=== PATIENT | female | born 1985 | race Hispanic/Latino ===

== ENCOUNTER 2017-03-13 10:49 | Inpatient (IN) | payer OTHER ==
[2017-03-13] MEDS ORDERED: LACTATED RINGERS 1,000 ML ONE (11:20)
[2017-03-13] MEDS ORDERED: LACTATED RINGERS 1,000 ML IV ONE (11:24)
[2017-03-13] MEDS ORDERED: LACTATED RINGERS 1,000 ML IV SCH ×2 (13:00→17:00)
[2017-03-13] MEDS ORDERED: SUBLIMAZE IV ONE (13:30)
[2017-03-13] MEDS ORDERED: PEPCID IV ONE (16:15)
[2017-03-13] MEDS ORDERED: BICITRA PO ONE (16:15)
[2017-03-13] MEDS ORDERED: REGLAN IV ONE (16:15)
[2017-03-13 16:49] LABS: Basophils % (Auto) 0.2 % (0.0-1.8); Eosinophils % (Auto) 1.9 % (0.0-4.3); Hematocrit 38.3 % (30.3-42.9); Mean Corpuscular HGB Conc 34 % (30-34); Mean Corpuscular Hemoglobin 32 pg (28-32); Mean Corpuscular Volume 95 fl (79-97); Platelet Count 218 K/mm3 (140-440); Red Blood Count 4.03 M/mm3 (3.65-5.03); Red Cell Distribution Width 13.8 % (13.2-15.2); White Blood Count 9.9 K/mm3 (4.5-11.0)
[2017-03-13] MEDS ORDERED: ANCEF/STERILE WATER 2 GM/20 ML 2 GM/20 ML SYRINGE IV NR (17:00)
[2017-03-13] MEDS ORDERED: PITOCin/NS 20 UNIT/1000ML DRIP 20 UNITS/1,000 ML BAG IV SCH ×2 (17:00→19:00)
--- NOTE | 2017-03-13 17:10 | Anesthesia Consultation ---
Anesthesia Consult and Med Hx Date of service: 03/13/17 - Airway Anesthetic Teeth Evaluation: Good ROM Head & Neck: Adequate Mental/Hyoid Distance: Adequate Mallampati Class: Class II Intubation Access Assessment: Probably Good - Pre-Operative Health Status ASA Pre-Surgery Classification: ASA2 Proposed Anesthetic Plan: Epidural, Spinal - Pulmonary Hx Asthma: No COPD: No Hx Pneumonia: No - Cardiovascular System Hx Hypertension: No - Central Nervous System Hx Seizures: No Hx Psychiatric Problems: No - Endocrine Hx Renal Disease: No Hx End Stage Renal Disease: No Hx Hypothyroidism: No Hx Hyperthyroidism: No - Hematic Hx Anemia: No Hx Sickle Cell Disease: No
[2017-03-13] MEDS ORDERED: PHENERGAN PR PRN (17:11)
[2017-03-13] MEDS ORDERED: ZOFRAN IV PRN (17:11)
[2017-03-13] MEDS ORDERED: MORPHINE IV PRN ×3 (17:11→18:39)
[2017-03-13] MEDS ORDERED: TORADOL IV PRN (17:11)
[2017-03-13] MEDS ORDERED: NARCAN 0.4 MG/1 ML IV PRN ×2 (17:11→18:58)
--- NOTE | 2017-03-13 17:11 | Anesthesia Day of Surgery ---
Anesthesia Day of Surgery - Day of Surgery Patient Examined: Yes Patient H&P Reviewed: Yes Patient is NPO: Yes
--- NOTE | 2017-03-13 17:16 | History and Physical Report ---
History of Present Illness Date of examination: 03/13/17 Date of admission: 03/13/17 16:22 Chief complaint: Repeat C Section with BTL History of present illness: Pt is a 31 yo WF EDC 03/30/17; EGA 37 4/7 weeks presents for the office complaining of RUC's q 2-3 mins and dilated 3cm. Pt had a previous C Section and desires a Repeat C Section with BTL. She received care at [facility] since 14 weeks and course has been unremarkable. records are available and GBS is Negative. Past History Past Medical History: no pertinent history Past Surgical History: section Social history: no significant social history, - Obstetrical History Expected Date of Delivery: 03/30/17 Actual Gestation: 37 Week(s) 4 Day(s) : 2 Medications and Allergies Allergies Allergy/AdvReac Type Severity Reaction Status Date / Time Sulfa (Sulfonamide Allergy Rash Verified 03/13/17 11:17 Antibiotics) Home Medications Medication Instructions Recorded Confirmed Last Taken Type Cetirizine HCl [Zyrtec] 10 mg PO DAILY 03/13/17 03/13/17 03/12/17 21:00 History 1 Ferrous Sulfate [Feosol 325 MG tab] 325 mg PO BID #60 tablet 03/13/17 Unknown Rx HYDROcodone/APAP 5-325 [[place] 1 each PO Q6HR PRN #30 tablet 03/13/17 Unknown Rx 5/325] Ibuprofen [Motrin] 800 mg PO Q8HR PRN #30 tablet 03/13/17 Unknown Rx Vit Calc,Iron,Folic 1 each PO DAILY #30 tablet 03/13/17 Unknown Rx [ Vitamins] Vit-Fe Fumar-FA [ 1 tab PO QDAY 03/13/17 03/13/17 03/12/17 21: 00 History Vitamin] 1 Active Meds: Active Medications Lactated Ringer's (Lactated Ringers) 1,000 mls @ 125 mls/hr IV DIRECT STEPHANIA Last Admin: 03/13/17 13:00 Dose: 125 mls/hr Cefazolin Sodium (Ancef/Sterile Water 2 Gm/20 Ml) 2 gm in 20 mls @ 80 mls/hr IV PREOP NR PRN Reason: Protocol Stop: 03/13/17 23:59 Lactated Ringer's (Lactated Ringers) 1,000 mls @ 2,250 mls/hr IV PREOP STEPHANIA Stop: 03/14/17 17:27 Last Admin: 03/13/17 16:45 Dose: 2,250 mls/hr Oxytocin/Sodium Chloride (Pitocin/Ns 20 Unit/1000ml Drip) 20 units in 1,000 mls @ 0 mls/hr IV TITR STEPHANIA PRN Reason: As Directed Review of Systems All systems: negative - Vital Signs Vital signs: Vital Signs Pulse BP 101 H 118/73 03/13/17 11:15 03/13/17 11:15 Temp Pulse Resp BP Pulse Ox 85 20 132/62 96 03/13/17 16:05 03/13/17 11:25 03/13/17 15:51 03/13/17 16:05 - Physical Exam Breasts: Positive: deferred Cardiovascular: Regular rate Lungs: Positive: Clear to auscultation Abdomen: Positive: normal appearance, soft Vagina: Positive: normal moisture Uterus: Positive: enlarged Extremities: Positive: normal - Obstetrical FHR: category 1 Uterine Contraction Monitor Mode: External Cervical Dilatation: 3 Cervical Effacement Percentage: 60 station: -2 Uterine Contraction Pattern: Regular Uterine Tone Measurement Phase: Contraction Uterine Contraction Intensity: Moderate Results Result Diagrams: 03/13/17 11:30 Abnormal lab results 03/13/17 Range/Units 11:30 [place] % (Auto) 7.9 H (0.0-7.3) % Seg Neutrophils % 71.6 H (40.0-70.0) % All other labs normal. Assessment and Plan - Patient Problems (1) 37 weeks gestation of Onset Date: 03/13/17 Current Visit: Yes Status: Acute Plan to address problem: A: IUP @ 37 4/7 weeks in labor Previous C Section Desires permanent sterilization P: Admit to L&D for repeat C Section with BTL (2) Previous delivery affecting Onset Date: 03/13/17 Current Visit: Yes Status: Acute (3) Contraception management Onset Date: 03/13/17 Current Visit: Yes Status: Acute Qualifiers: Contraceptive encounter type: sterilization Qualified Code(s): Z30.2 - Encounter for sterilization
[2017-03-13] MEDS ORDERED: MORPHINE ONE (17:20)
[2017-03-13] MEDS ORDERED: WATER FOR IRRIG STERILE IR ONE (17:25)
[2017-03-13] MEDS ORDERED: NACL 0.9% IR ONE (17:25)
[2017-03-13] MEDS ORDERED: ZOFRAN ONE (17:53)
[2017-03-13] MEDS ORDERED: VERSED ONE (17:56)
[2017-03-13] MEDS ORDERED: NEO SYNEPHRINE/NS Syringe(OR USE) IV ONE (18:00)
[2017-03-13] MEDS ORDERED: SODIUM CHLORIDE FLUSH SYRINGE 10 ML IV SCH ×2 (18:00→19:00)
--- NOTE | 2017-03-13 18:32 | Operative Report ---
Operative Report Operative Report: Date of procedure: 03/13/2017 Pre-operative diagnosis: 1. Intrauterine at 37-4/7 weeks in labor 2. Previous 3. Desires permanent sterilization Post-operative diagnosis: Same Procedure name(s): 1. Repeat low transverse section 2. Bilateral tubal ligation Surgeon: Agusto Garcia MD Janitor And Cleaner: None Anesthesia: Spinal anesthesia by Dr. Dominguez EBL: 500 mls Findings: A 3095 g male Apgars 8 at 1 minute 9 at 5 minutes. Clear amniotic fluid. Normal uterus. Normal tubes and ovaries bilaterally Procedure: After the patient was prepped and draped in usual sterile fashion, and after satisfactory level of epidural anesthesia was obtained, the skin knife was used to make a transverse skin incision through the previous skin scar. The incision was excised down to layer of the fascia, which was nicked in the midline and extended laterally using the Bovie cautery. The rectus muscles were dissected off the rectus fascia both superiorly and inferiorly. The rectus bellies in the midline, and the peritoneum was entered under direct visualization. The peritoneal incision was extended superiorly and inferiorly. A bladder flap was created and the bladder blade was then placed. The uterus was scored in a curvilinear linear fashion, entered in the midline revealing clear amniotic fluid. The 's head was delivered onto the surgical field nuchal cord 1 was easily reduced, and the oropharynx and nasopharynx were bulb suctioned. The rest of the infant's body was delivered, cord was doubly clamped and cut and the infant was handed to the waiting respiratory team. The placenta was manually removed from the uterus, and the uterus removed from its normal anatomical position. After gentle uterine lavage , the incision was inspected and found to be without extensions. It was then closed in 2 layers using 0 Vicryl suture in a running interlocking fashion, the second layer imbricating the first. After good hemostasis was achieved, copious amounts or irrigation was performed, and the gutters were suctioned free of blood and blood clots. She was then turned to the tubal ligation. First the right fallopian tube was grasped using Laine, and after identifying the fimbriated end of the tube, the Filshie clip was applied to the proximal portion of the right tube. The same procedure was performed on the left fallopian tube. The left fallopian tube was grasped using the Laine, and after identifying the fimbriated end of the tube, the Filshie clip was applied to the proximal portion of the left tube The Tisseel sealant was sprayed across the uterine incision. The uterus was then returned to its normal anatomical position, and after excellent hemostasis assured, the peritoneum was re- approximated using 3-0 Vicryl suture in a running interlocking fashion, and then the rectus muscles were re-approximated using 3-0 Vicryl suture in a figure -of-eight configuration. The fascia was then re-approximated using 0 Vicryl suture in running interlocking fashion. The subcutaneous layer was made hemostatic using Bovie cautery, the Tisseel sealant was sprayed across the fascial incision and the skin edges re-approximated using 4-0 Vicryl suture in a sub-cuticular fashion. Patient tolerated the procedure well was transported to recovery in stable condition.
--- NOTE | 2017-03-13 18:38 | Post Anesthesia Evaluation ---
- Post Anesthesia Evaluation Patient Participated: Yes Airway Patent: Yes Stable Respiratory Function: Yes Nausea/Vomiting: No Temp > 96.8F: Yes Pain Manageable: Yes Adequeate Hydration: Yes Anesthesia Complications: No Block Receding Appropriately: Yes Patient on Ventilator: No
[2017-03-13] MEDS ORDERED: TYLENOL PO PRN (18:58)
[2017-03-13] MEDS ORDERED: MYLICON PO PRN (18:58)
[2017-03-13] MEDS ORDERED: MILK OF MAGNESIA PO PRN (18:58)
[2017-03-13] MEDS ORDERED: NORCO 5/325 PO PRN (18:58)
[2017-03-13] MEDS ORDERED: TUCKS PAD TP PRN (18:58)
[2017-03-13] MEDS ORDERED: SENOKOT PO PRN (18:58)
[2017-03-13] MEDS ORDERED: LANSINOH TP PRN (18:58)
[2017-03-13] MEDS ORDERED: ANCEF/NS 1 GM/50 ML 1 GM/50 ML BAG IV SCH (19:00)
[2017-03-13] MEDS ORDERED: D5LR 1,000 ML IV SCH (19:00)
[2017-03-13] MEDS: BENADRYL IV PRN ×2 (19:26→21:51)
[2017-03-14] MEDS ORDERED: ceFAZolin 1 GM in NACL 0.9% 20 ML IV SCH
[2017-03-14] MEDS: BENADRYL IV PRN (00:43)
[2017-03-14] MEDS ORDERED: BOOSTRIX IM ONE (06:00)
[2017-03-14 07:19] LABS: Hemoglobin 10.4 gm/dl (10.1-14.3)
--- NOTE | 2017-03-14 08:37 | Progress Note ---
Assessment and Plan - Patient Problems (1) 37 weeks gestation of Onset Date: 03/13/17 Current Visit: Yes Status: Resolved (2) Previous delivery affecting Onset Date: 03/13/17 Current Visit: Yes Status: Resolved (3) Contraception management Onset Date: 03/13/17 Current Visit: Yes Status: Resolved Qualifiers: Contraceptive encounter type: sterilization Qualified Code(s): Z30.2 - Encounter for sterilization (4) Status post repeat low transverse section Onset Date: 03/14/17 Current Visit: Yes Status: Resolved Plan to address problem: A: S/P Repeat C Section with BTL - POD #1 Doing well Acute blood loss anemia - stable P: Continue RPOC Anticipate discharge in 24-48hrs (5) Acute blood loss anemia Onset Date: 03/14/17 Current Visit: Yes Status: Resolved Subjective - Subjective Date of service: 03/14/17 Principal diagnosis: s/p Repeat C Section with BTL - POD #1 Interval history: Pt is feeling well without complaints, tolerating a liquid diet without nausea or vomiting. Patient reports: appetite normal, voiding normally, pain well controlled, flatus , ambulating normally, no nauseated : doing well, nursing well Objective - Vital Signs Latest vital signs: Vital Signs Temp Pulse Resp BP BP Pulse Ox 03/14/17 04:00 98.6 F 81 18 103/71 03/14/17 00:30 98 F 66 18 101/76 03/13/17 20:30 98.6 F 71 16 114/69 03/13/17 19:35 97.6 F 73 13 110/65 95 03/13/17 19:30 83 14 119/66 94 03/13/17 19:25 77 11 L 127/58 95 03/13/17 19:20 67 20 112/68 96 03/13/17 19:15 74 13 116/66 96 03/13/17 19:10 86 14 110/62 96 03/13/17 19:08 97.7 F 03/13/17 19:05 68 12 104/58 95 03/13/17 19:00 73 14 115/67 96 03/13/17 18:59 67 19 111/63 95 03/13/17 18:53 81 15 114/69 94 03/13/17 18:47 91 H 18 109/62 96 03/13/17 18:41 81 12 101/56 93 03/13/17 18:36 92 H 11 L 94 03/13/17 18:35 97.3 F L 88 14 101/65 94 03/13/17 16:05 85 96 03/13/17 16:00 82 97 03/13/17 15:55 91 H 98 03/13/17 15:51 90 132/62 03/13/17 15:50 99 H 97 03/13/17 15:45 83 96 03/13/17 15:40 86 96 03/13/17 15:35 84 97 03/13/17 15:30 100 H 95 03/13/17 15:25 86 96 03/13/17 15:20 92 H 95 03/13/17 15:15 86 96 03/13/17 15:10 84 95 03/13/17 15:05 93 H 95 03/13/17 15:00 81 95 03/13/17 14:55 91 H 96 03/13/17 14:31 88 95 03/13/17 14:26 88 96 03/13/17 14:21 82 96 03/13/17 14:16 85 96 03/13/17 14:11 83 97 03/13/17 14:06 86 96 03/13/17 14:01 78 97 03/13/17 13:56 79 97 03/13/17 13:18 101 H 100 03/13/17 13:14 86 113/65 03/13/17 13:13 96 H 99 03/13/17 11:25 101 H 20 03/13/17 11:15 101 H 118/73 Intake and Output 03/13/17 03/14/17 03/14/17 22:59 06:59 14:59 Intake Total 2100 250 Output Total 150 300 Balance 1950 -50 Intake: IV 1800 Oral 250 Intake, Free Water 300 Output: Urine 150 300 Indwelling Catheter 300 Other: Total, Intake Amount 250 Total, Output Amount 300 Estimated Blood Loss 500 - Exam Breasts: Present: deferred Cardiovascular: Present: Regular rate Lungs: Present: Clear to auscultation Abdomen: Present: normal appearance, soft Uterus: Present: normal, firm, fundal height below umbilicus Extremities: Present: normal Incision: Present: normal, dry, intact, dressed - Labs Labs: Abnormal lab results 03/13/17 Range/Units 11:30 [place] % (Auto) 7.9 H (0.0-7.3) % Seg Neutrophils % 71.6 H (40.0-70.0) % Laboratory Tests 03/13/17 03/13/17 03/14/17 11:30 11:30 06:50 WBC 9.9 RBC 4.03 Hgb 13.0 10.4 Hct 38.3 31.0 D MCV 95 MCH 32 MCHC 34 RDW 13.8 Plt Count 218 Lymph % (Auto) 18.4 [place] % (Auto) 7.9 H Eos % (Auto) 1.9 Baso % (Auto) 0.2 Lymph # 1.8 [place] # 0.8 Eos # 0.2 Baso # 0.0 Seg Neutrophils % 71.6 H Seg Neutrophils # 7.1 Blood Type B POSITIVE Antibody Screen Negative
[2017-03-14] MEDS ORDERED: FEOSOL PO SCH (10:00)
[2017-03-14] MEDS ORDERED: PRENATAL VITAMIN PO SCH (10:00)
[2017-03-14] MEDS ORDERED: ceFAZolin 1 GM in NACL 0.9% 20 ML IV ONE (12:00)
[2017-03-14] MEDS: MOTRIN PO PRN ×2 (12:15→23:39)
--- NOTE | 2017-03-14 14:28 | Progress Note ---
Subjective Date of service: 03/14/17 Principal diagnosis: s/p Repeat C Section with BTL - POD #1 Interval history: 1st POD after Patient is in the bed, comfortable. Pain is well controlled with pain meds. Ambulated well. No residual neurological deficit. No anesthesia complications Objective - Constitutional Vitals: Vital Signs - 12hr 03/14/17 03/14/17 03/14/17 04:00 08:15 10:19 Temperature 98.6 F 98 F Pulse Rate 81 71 Respiratory 18 18 20 Rate Blood Pressure 103/71 106/51 [Left] - Labs CBC & Chem 7: 03/14/17 06:50 Labs: Abnormal lab results 03/13/17 Range/Units 11:30 [place] % (Auto) 7.9 H (0.0-7.3) % Seg Neutrophils % 71.6 H (40.0-70.0) %
[2017-03-14] MEDS ORDERED: M-M-R II VACCINE SUB-Q ONE (19:00)
[2017-03-14] MEDS: PERCOCET 5/325 PO PRN (23:39)
[2017-03-15] MEDS: MOTRIN PO PRN (06:18)
[2017-03-15] MEDS: PERCOCET 5/325 PO PRN (06:18)
--- NOTE | 2017-03-15 10:42 | Progress Note ---
Assessment and Plan - Patient Problems (1) 37 weeks gestation of Onset Date: 03/13/17 Current Visit: Yes Status: Resolved (2) Previous delivery affecting Onset Date: 03/13/17 Current Visit: Yes Status: Resolved (3) Contraception management Onset Date: 03/13/17 Current Visit: Yes Status: Resolved Qualifiers: Contraceptive encounter type: sterilization Qualified Code(s): Z30.2 - Encounter for sterilization (4) Status post repeat low transverse section Onset Date: 03/14/17 Current Visit: Yes Status: Resolved Plan to address problem: A: S/P Repeat C Section with BTL - POD #2 Doing well Acute blood loss anemia - stable P: May go home today (5) Acute blood loss anemia Onset Date: 03/14/17 Current Visit: Yes Status: Resolved Subjective - Subjective Date of service: 03/15/17 Principal diagnosis: s/p Repeat C Section with BTL - POD #2 Interval history: Pt is feeling well without complaints, tolerating a reg diet without nausea or vomiting, ambulating and voiding without difficulty. Patient reports: appetite normal, voiding normally, pain well controlled, flatus , bowel movement, ambulating normally [place]: doing well, nursing well Objective - Vital Signs Latest vital signs: Vital Signs Temp Pulse Resp BP 03/15/17 08:54 98 F 73 18 113/69 03/15/17 00:30 98.6 F 69 18 113/68 03/14/17 17:00 97.7 F 77 18 106/63 03/14/17 12:15 20 Intake and Output 03/14/17 03/15/17 03/15/17 22:59 06:59 14:59 Intake Total 300 Balance 300 Intake: Intake, Free Water 300 Other: # Voids Void 1 - Exam Breasts: Present: deferred Cardiovascular: Present: Regular rate Lungs: Present: Clear to auscultation Abdomen: Present: normal appearance, soft Uterus: Present: normal, firm, fundal height below umbilicus Extremities: Present: normal Incision: Present: normal, dry, intact
--- NOTE | 2017-03-15 11:24 | Discharge Summary ---
Providers - Providers Date of Admission: 03/13/17 16:22 Date of discharge: 03/15/17 Attending physician: ASHOK HERRERA Primary care physician: ASHOK HERRERA Hospitalization Reason for admission: active labor, section, IUP at term Delivery: Procedure: section, bilateral tubal ligation, repeat low transverse Episiotomy: none Laceration: none Incision: normal, dry, intact Other procedures: tubal ligation complications: none Discharge diagnosis: IUP at term delivered [place] baby: male Hospital course: Pt is a 31 yo WF EDC 03/30/17; EGA 37 4/7 weeks who presented from the office complaining of RUC's q 2-3 mins and dilated 3cm. Pt had a previous C Section and desired a Repeat C Section with BTL. She underwent an uncomplicated repeat C Section with BTL, and tolerated the procedure well. Post operative course has been uneventful, and by POD #2 she was tolerating a reg diet without nausea or vomiting, ambulating and voiding without difficulty and therefore discharged to home on POD #2 in stable condition. Condition at discharge: Stable Disposition: DC-01 TO HOME OR SELFCARE - Discharge Diagnoses (1) 37 weeks gestation of Status: Resolved (2) Previous delivery affecting Status: Resolved (3) Contraception management Status: Resolved Qualifiers: Contraceptive encounter type: sterilization Qualified Code(s): Z30.2 - Encounter for sterilization (4) Status post repeat low transverse section Status: Resolved (5) Acute blood loss anemia Status: Resolved Plan - Discharge Medications Prescriptions: Ferrous Sulfate [Feosol 325 MG tab] 325 mg PO BID #60 tablet HYDROcodone/APAP 5-325 [[place] 5/325] 1 each PO Q6HR PRN #30 tablet PRN Reason: Pain Ibuprofen [Motrin] 800 mg PO Q8HR PRN #30 tablet PRN Reason: Moder Pain Unrelieved By [place] Vit Calc,Iron,Folic [ Vitamins] 1 each PO DAILY #30 tablet - Provider Discharge Summary Activity: routine, no sex for 6 weeks, no heavy lifting 4 weeks, no strenuous exercise Diet: routine Instructions: routine Additional instructions: [] Smoking cessation referral if applicable(refer to patient education folder for contact #) [] Refer to [facility] Booklet Call your doctor immediately for: * Fever > 100.5 * Heavy vaginal bleeding ( >1 pad per hour) * Severe persistent headache * Shortness of breath * Reddened, hot, painful area to leg or breast * Drainage or odor from incision. * Keep incision clean and dry at all times and follow doctor's instructions regarding bathing/showering - Follow up plan Follow up: ASHOK HERRERA MD [Primary Care Provider] - 14 Days
[2017-03-15 13:01] VITALS: BP 109/73
== END 2017-03-15 14:50 | disposition home or self-care (01) | DRG 765 ==
LOC: TRG 10:49 → APU 16:22 → OB 21:01
PROVIDERS: ADMIT Obstetrics & Gynecology; ATTEND Obstetrics & Gynecology
PROC: 10D00Z1 Extraction of Products of Conception, Low, Open Approach (ICD-10-PCS; principal; 2017-03-13)
PROC: 0UL70CZ Occlusion of Bilateral Fallopian Tubes with Extraluminal Device, Open Approach (ICD-10-PCS; 2017-03-13)
PROC: 3E0234Z Introduction of Serum, Toxoid and Vaccine into Muscle, Percutaneous Approach (ICD-10-PCS; 2017-03-14)
DX: O34.211 Maternal care for low transverse scar from previous cesarean delivery (principal); D62 Acute posthemorrhagic anemia; Z3A.37 37 weeks gestation of pregnancy; Z37.0 Single live birth; Z30.2 Encounter for sterilization; O90.81 Anemia of the puerperium; Z23 Encounter for immunization
CPT/HCPCS: 36415; 59025; 85014; 85018; 85025; 86850; 86900; 86901; 96360; 99211; A6250; C9250; G0463; J0690; J1200; J1885; J2250; J2270; J2370; J2405; J2590; J2765; J3010; J7120; J7121